=== PATIENT | female | born 1975 | race Caucasian/White ===

== ENCOUNTER 2024-02-08 08:01 | Emergency (ER) | payer OTHER, SELFPAY ==
[2024-02-08 08:08] VITALS: BP 162/87; PULSE 83; RESP 18; O2SAT 99; BMI 34.8
--- NOTE | 2024-02-08 08:42 | ED_ITS ---
HPI - GI Bleed General Chief complaint: GI Bleed Stated complaint: black stool Time Seen by Provider: 02/08/24 08:03 History of Present Illness HPI Narrative: This 48-year-old female comes in reporting nausea with diarrhea that began 2 evenings ago after eating a salad. She had 1 emesis yesterday. She reports some crampy abdominal pain. She comes in today because she states that her diarrhea has turned black. She has been able to take sufficient oral liquids. She is taking Celebrex. She does not report any lightheadedness or shortness of breath. Related Data Home Medications ?Medication ?Instructions ?Recorded ?Confirmed celecoxib 200 mg capsule 200 mg PO BID 02/08/24 02/08/24 hydrochlorothiazide 25 mg tablet 25 mg PO DAILY 02/08/24 02/08/24 Previous Rx's ?Medication ?Instructions ?Recorded pantoprazole 20 mg tablet,delayed 20 mg PO DAILY #20 tabs 02/08/24 release (Protonix) Allergies Allergy/AdvReac Type Severity Reaction Status Date / Time No Known Drug Allergies Allergy Verified 02/08/24 08:07 Review of Systems Status of ROS: Reports: 10 or more systems reviewed and unremarkable except as noted in History and below Narrative: Constitutional: No fevers, no weight gain or loss. Eyes: No discharge. No vision changes. HENT: No congestion, no sore throat, no ear pain. Cardiovascular: No chest pain, no palpitations. Respiratory: No shortness of breath, no wheezes, no cough. Gastrointestinal: Crampy abdominal pain with 1 emesis and dark colored diarrhea. Genitourinary: No dysuria, no hematuria. Musculoskeletal: Normal range of motion. Skin: No rashes, no pruritis. Neurological: No dizziness, weakness, sensory change, speech change. Endo/Heme/Allergies: No bruising or bleeding. No polydipsia. Pysch: no suicidality, no anxiety, no insomnia. All other systems reviewed and are negative. PFSH PFSH Social History Smoking Status: Never smoker Do you use any of these nicotine containing products: None Second hand tobacco smoke exposure: No How often do you have a drink containing alcohol: never AUDIT-C Alcohol total score: 0 Non-prescribed substance use: denies use service: No Exam Narrative: Exam Narrative: Constitutional: Well-developed, well-nourished, no acute distress. HEENT: Normocephalic, atraumatic. Neck: Normal range of motion. Nontender. Supple. Heart: Regular. No murmurs. Normal rate. Intact distal pulses. Lungs: Clear to auscultation. No chest discomfort. No wheezes, rhonchi, or rales. Abdomen: Normal bowel sounds. Nontender. No rebound tenderness. Genitalia: Deferred. Back: No midline tenderness. Normal range of motion. Extremities: Normal range of motion. No injury. Skin: Intact. No rash. Warm. No erythema or pallor. Neurologic: No altered sensation. No weakness. Alert and oriented. Psychiatric: No suicidality. No anxiety or depression. No insomnia. Nursing notes and vitals signs are reviewed. Const: Vital Signs, click to edit/add: Vital Signs - 24 hr 02/08/24 08:08 Pulse Rate [Pulse Oximeter] 83 Respiratory Rate 18 Blood Pressure [Ri ght Upper Arm] 162/87 H Pulse Oximetry 99 Oxygen Delivery Me thod Room Air Course Vital Signs Vital signs: Initial Vital Signs Temperature Source Temporal Artery Scan 02/08/24 08:08 Pulse Rate 83 02/08/24 08:08 Respiratory Rate 18 02/08/24 08:08 Blood Pressure 162/87 H 02/08/24 08:08 Blood Pressure Mean 112 H 02/08/24 08:08 Blood Pressure Position Sitting 02/08/24 08:08 Pulse Oximetry 99 02/08/24 08:08 Oxygen Delivery Method Room Air 02/08/24 08:08 Vital Signs Pulse Rate 83 02/08/24 08:08 Respiratory Rate 18 02/08/24 08:08 Blood Pressure 162/87 H 02/08/24 08:08 Pulse Oximetry 99 02/08/24 08:08 Oxygen Delivery Method Room Air 02/08/24 08:08 Pulse Rate 83 02/08/24 08:08 Respiratory Rate 18 02/08/24 08:08 Blood Pressure 162/87 H 02/08/24 08:08 Pulse Oximetry 99 02/08/24 08:08 Oxygen Delivery Method Room Air 02/08/24 08:08 MDM - GI Bleed MDM Narrative Medical decision making narrative: This patient comes in reporting diarrhea which is dark or black. She arrives with normal vital signs. Labs are acquired and a stool sample is obtained. The nurse reports that it was a formed stool and was not black or dark but had some greenish color to it. Fecal occult blood test was negative. Lab results also returned with normal findings. This was reassuring news to the patient. She is okay to be discharged home. I did provide a prescription for Protonix. Lab Data Labs: Lab Results 02/08/24 Range/Units 08:45 WBC 8.72 (4.50-11.00) K/uL RBC 4.78 (4.00-5.20) m/uL Hgb 14.5 (12.0-16.0) gm/dL Hct 42.1 (33.0-51.0) % MCV 88 (80-100) fL MCH 30 (26-34) pg MCHC 34 (32-36) gm/dL RDW Coeff of Angela 11.8 (11.5-15.5) % Plt Count 268 (140-440) K/uL Neut % (Auto) 69.0 (42.0-72.0) % Lymph % (Auto) 22.1 (20-44) % Luna % (Auto) 6.2 (0.0-11.0) % Eos % (Auto) 2.2 (0.0-7.0) % Baso % (Auto) 0.2 (0.0-3.0) % Neut # (Auto) 6.01 (1.7-7.0) K/uL Lymph # (Auto) 1.93 (0.90-2.90) K/uL Luna # (Auto) 0.50 (0.00-0.90) K/UL Eos # (Auto) 0.19 (0.00-0.50) K/uL Baso # (Auto) 0.02 (0.00-0.30) K/uL Abs Immat Gran (auto) 0.03 (0.00-0.30) K/uL Imm/Tot Granulo (auto) 0.3 % Sodium 137 (135-149) mmol/L Potassium 3.6 (3.6-5.1) mmol/L Chloride 101 (96-114) mmol/L Carbon Dioxide 26 (20-32) mmol/L Anion Gap 10 (7-15) mEq/L BUN 13 (5-24) mg/dL Creatinine 0.7 (0.5-1.5) mg/dL Estimated Creat Clear 78.58 Estimated GFR 107 ml/min Glucose 97 (60-115) mg/dL Calcium 9.1 (8.4-10.6) mg/dL Stool Occult Blood Negative (Negative) Discharge Plan Discharge Clinical Impression: Gastroenteritis Patient Disposition: Home, Self-Care Condition: Stable Additional Instructions: Take fluids and increase diet otherwise as tolerated. Follow up with MD or return if worsening symptoms occur. Prescriptions: New pantoprazole [Protonix] 20 mg tablet,delayed release (DR/EC) 20 mg PO DAILY Qty: 20 2RF No Action celecoxib 200 mg capsule 200 mg PO BID hydrochlorothiazide 25 mg tablet 25 mg PO DAILY Follow Up/Referrals: Nanci Winn MD [Primary Care Provider] - Stand Alone Forms: [email or web address] Info Instructions
[2024-02-08 09:02] LABS: Basophils Absolute Auto 0.02 K/uL (0.00-0.30); Basophils Percent Auto 0.2 % (0.0-3.0); Eosinophils Absolute Auto 0.19 K/uL (0.00-0.50); Eosinophils Percent Auto 2.2 % (0.0-7.0); Hematocrit 42.1 % (33.0-51.0); Hemoglobin* 14.5 gm/dL (12.0-16.0); Immature Granulocytes Abs Auto 0.03 K/uL (0.00-0.30); Immature Granulocytes Pct Auto 0.3 %; Lymphocytes Absolute Auto 1.93 K/uL (0.90-2.90); Lymphocytes Percent Auto 22.1 % (20-44); Mean Corpuscular HGB Conc 34 gm/dL (32-36); Mean Corpuscular Hemoglobin 30 pg (26-34); Mean Corpuscular Volume 88 fL (80-100); Monocytes Percent Auto 6.2 % (0.0-11.0); Neutrophils Absolute Auto 6.01 K/uL (1.7-7.0); Platelet Count* 268 K/uL (140-440); RDW Coefficient of Variation % 11.8 % (11.5-15.5); Red Blood Count 4.78 m/uL (4.00-5.20); White Blood Count* 8.72 K/uL (4.50-11.00)
[2024-02-08 09:04] LABS: Slide Review Reflex No
[2024-02-08 09:13] LABS: Fecal Occult Blood* Negative (Negative)
[2024-02-08 09:17] LABS: Chloride* 101 mmol/L (96-114)
[2024-02-08 09:18] LABS: Potassium* 3.6 mmol/L (3.6-5.1); Sodium* 137 mmol/L (135-149)
[2024-02-08 09:20] LABS: Creatinine* 0.7 mg/dL (0.5-1.5); Est. Creatinine Clearance* 78.58; Estimated Glomerular Filt Rate 107 ml/min
[2024-02-08 09:21] LABS: Anion Gap 10 mEq/L (7-15); Blood Urea Nitrogen* 13 mg/dL (5-24); Calcium* 9.1 mg/dL (8.4-10.6); Carbon Dioxide* 26 mmol/L (20-32); Glucose* 97 mg/dL (60-115)
== END 2024-02-08 09:55 | disposition home or self-care (01) ==
LOC: ED 09:55
PROVIDERS: Emergency Provider Emergency Medicine Emergency Medical Services; PCP Family Medicine; Visit Provider Emergency Medicine Emergency Medical Services
DX: K52.9 Noninfective gastroenteritis and colitis, unspecified (principal)
CPT/HCPCS: 36415; 80048; 82270; 85025; 87045; 87046; 87427; 99283; 99284